=== PATIENT | female | born 1965 | race Caucasian/White ===

== ENCOUNTER → 2016-06-09 | Outpatient (CLI) | payer OTHER ==
[~2016-06-09] MED LIST: CEPH500C PO; CEPH500C2 PO; CLOB-65 TOP; LISI-461 PO; OXYC-106 PO; PRAV20TA PO; SPIR25TA89 PO; ZVR400 PO
== END | disposition home or self-care (01) ==
LOC: C.LAB 12:08
PROVIDERS: ATTEND Orthopaedic Surgery
DX: S62.634K Displaced fracture of distal phalanx of right ring finger, subsequent encounter for fracture with nonunion (principal); X58.XXXS Exposure to other specified factors, sequela